=== PATIENT | male | born 1945 | race Caucasian/White ===

== ENCOUNTER 2021-06-17 11:41 | Day surgery (SDC) | payer OTHER ==
[2021-06-17] MEDS ORDERED: BUPIVACAINE 0.5% VIAL IJ ONE (11:42)
[2021-06-17] MEDS ORDERED: Depo-Medrol 40 MG/ML IJ ONE (11:42)
[2021-06-17] MEDS ORDERED: Lactated Ringers 1,000 ML IV ONE (14:53)
[2021-06-17] MEDS ORDERED: DIPRIVAN 200 MG/20 ML IV ONE (15:03)
--- NOTE | 2021-06-17 16:06 | XRAY ---
Indication: Right SI joint injection. Intraoperative fluoroscopy provided for 11 seconds. 2 digital spot image submitted for interpretation demonstrates posterior needle tip projecting over the inferior right SI joint. Correlate with intraoperative findings/report.
--- NOTE | 2021-06-17 16:31 | XRAY ---
11 seconds fluoroscopy time in surgery for injection of the right SI joint.
== END 2021-06-17 15:23 | disposition home or self-care (01) ==
LOC: SDC-PAIN 11:41
PROVIDERS: ATTEND Psychiatry & Neurology Pain Medicine
DX: M46.1 Sacroiliitis, not elsewhere classified (principal); I10 Essential (primary) hypertension; Z79.899 Other long term (current) drug therapy
CPT/HCPCS: 27096; 72020; 77002; G0260; 99100; J1030; J2704

== ENCOUNTER 2021-12-16 12:01 | Day surgery (SDC) | payer OTHER ==
[2021-12-16] MEDS ORDERED: XYLOCAINE-MPF 1% 5ML SDV IJ ONE (12:02)
[2021-12-16] MEDS ORDERED: Depo-Medrol 40 MG/ML IM ONE (12:02)
[2021-12-16] MEDS ORDERED: Marcaine Mpf 0.5% Vial 30 Ml IJ ONE (12:02)
[2021-12-16] MEDS ORDERED: Decadron 4 MG INJ IV ONE (12:02)
[2021-12-16] MEDS ORDERED: DIPRIVAN 200 MG/20 ML IV ONE (13:48)
[2021-12-16] MEDS ORDERED: Lactated Ringers 1,000 ML IV ONE (14:03)
--- NOTE | 2021-12-16 15:30 | XRAY ---
Indication: Right SI joint and right piriformis injections. Intraoperative fluoroscopy provided for 25 seconds. 4 digital spot image submitted for interpretation demonstrates posterior needle tip projecting over the inferior right SI joint. Second posterior needle tip projects over the right piriformis muscle with small amount of contrast injected for needle tip placement. Correlate with intraoperative findings/report.
--- NOTE | 2021-12-16 15:40 | XRAY ---
25 seconds fluoroscopy time in surgery for injections of the right SI joint and right piriformis muscle.
== END 2021-12-16 14:13 | disposition home or self-care (01) ==
LOC: SDC-PAIN 12:01
PROVIDERS: ATTEND Psychiatry & Neurology Pain Medicine
DX: M46.1 Sacroiliitis, not elsewhere classified (principal); M79.18 Myalgia, other site; Z79.899 Other long term (current) drug therapy
CPT/HCPCS: 20552; 27096; 72170; 77002; G0260; 99100; J1030; J1100; J2704; Q9966

== ENCOUNTER 2023-03-30 13:35 | Day surgery (SDC) | payer OTHER ==
[2023-03-30] MEDS ORDERED: BUPIVACAINE 0.5% VIAL IJ ONE (13:36)
[2023-03-30] MEDS ORDERED: Depo-Medrol 40 MG/ML IM ONE (13:36)
[2023-03-30] MEDS ORDERED: DIPRIVAN 200 MG/20 ML IV ONE (15:40)
[2023-03-30] MEDS ORDERED: Xylocaine-Mpf 2% 5 Ml Vial ONE (15:47)
[2023-03-30] MEDS ORDERED: Lactated Ringers 1,000 ML IV ONE (17:10)
--- NOTE | 2023-03-30 17:17 | XRAY ---
Indication: Right SI joint injection. Intraoperative fluoroscopy provided for 8 seconds. 2 digital spot images submitted for interpretation demonstrates posterior needle tip projecting over the right SI joint. Correlate with intraoperative findings/report.
--- NOTE | 2023-03-30 17:41 | XRAY ---
8 seconds of fluoroscopy was used in surgery for a right sacroiliac joint injection.
== END 2023-03-30 17:14 | disposition home or self-care (01) ==
LOC: SDC-PAIN 13:35
PROVIDERS: ATTEND Psychiatry & Neurology Pain Medicine
DX: M46.1 Sacroiliitis, not elsewhere classified (principal)
CPT/HCPCS: 27096; 72170; 77002; G0260; J1030; J2704